=== PATIENT | male | born 1930 | race Hispanic/Latino ===

== ENCOUNTER 2017-05-01 09:21 | Inpatient (IN) | payer MEDICARE ==
[2017-05-01 09:21] VITALS: BMI 21.9
[2017-05-01 10:24] LABS: BASO % 0.3 % (0.0-2.0); EOS # 0.1 K/uL (0.0-0.7); EOS % 1.9 % (0.0-4.0); HEMATOCRIT 24.8 % (35.0-51.0); LYMPH # 0.7 K/uL (1.0-4.3); LYMPH % 17.4 % (20.0-40.0); MEAN CORPUSCULAR HEMOGLOBIN 20.6 pg (27.0-31.0); MEAN CORPUSCULAR HGB CONC 31.7 g/dL (33.0-37.0); MEAN PLATELET VOLUME 7.4 fL (7.2-11.7); MONO # 0.6 K/uL (0.0-0.8); MONO % 14.1 % (0.0-10.0); RED CELL DISTRIBUTION WIDTH 17.4 % (11.5-14.5)
[2017-05-01 10:37] LABS: POTASSIUM 4.4 mmol/L (3.6-5.2)
[2017-05-01 10:40] LABS: ALB/GLOB RATIO 1.5 (1.0-2.1); BILIRUBIN,TOTAL 0.7 mg/dL (0.2-1.3); CALCIUM 8.1 mg/dl (8.6-10.4)
[2017-05-01 10:51] LABS: TROPONIN I 0.012 ng/mL (0.00-0.120)
--- NOTE | 2017-05-01 13:37 | C.PDOC ---
History Of Present Illness 86 year old male presents to the ED c/o intermittent palpitations but has been worse since yesterday. Patient states he feels the palpitations every time he walks associated with lightheadedness. Patient denies any CP, SOB, fever, chills , cough. Time Seen by Provider: 05/01/17 09:58 Chief Complaint (Nursing): Palpitations History Per: Patient History/Exam Limitations: no limitations Onset/Duration Of Symptoms: Intermittent Episodes Current Symptoms Are (Timing): Still Present Recent travel outside of the [place]: No Additional History Per: Patient Past Medical History Reviewed: Historical Data, Nursing Documentation, Vital Signs Vital Signs: Last Vital Signs Temp 97.6 F 05/01/17 15:40 Pulse 66 05/01/17 15:40 Resp 20 05/01/17 15:40 BP 178/77 H 05/01/17 15:40 Pulse Ox 98 05/01/17 15:40 - Medical History PMH: COPD, HTN, Hyperlipidemia Surgical History: Coronary Stent (06/2016) - Hall Procedures ENDOSC POLYPECTOMY OF LG INTEST (12/21/14) MEASURE OF CARDIAC SAMPL & PRESSURE, L HEART, PERC APPROACH (07/11/16) PLAIN RADIOGRAPHY OF LEFT HEART USING OTHER CONTRAST (07/11/16) PLAIN RADIOGRAPHY OF MULT COR ART USING OTH CONTRAST (07/11/16) Family History: States: Unknown Family Hx - Social History Hx Tobacco Use: No Hx Alcohol Use: No Hx Substance Use: No - Immunization History Hx Tetanus Toxoid Vaccination: No Hx Influenza Vaccination: Yes Hx Pneumococcal Vaccination: Yes Review Of Systems Constitutional: Negative for: Fever, Chills Cardiovascular: Positive for: Palpitations. Negative for: Chest Pain Respiratory: Negative for: Cough, Shortness of Breath Gastrointestinal: Negative for: Nausea, Vomiting, Abdominal Pain Neurological: Negative for: Weakness, Numbness Physical Exam - Physical Exam Appears: Non-toxic, No Acute Distress Skin: Warm, Dry, Pale Head: Atraumatic, Normacephalic Eye(s): bilateral: Normal Inspection Oral Mucosa: Moist Neck: Normal ROM, Supple Chest: Symmetrical, No Tenderness Cardiovascular: Rhythm Regular, No Murmur Respiratory: Normal Breath Sounds, No Accessory Muscle Use, No Rales, No Rhonchi , No Wheezing Gastrointestinal/Abdominal: Soft, No Tenderness Rectal: Heme Negative (no stool in the rectum, yanelis negative) Extremity: Normal ROM, No Pedal Edema, No Deformity, No Swelling Neurological/Psych: Oriented x3, Normal Speech, Normal Cognition, Normal Motor, Normal Sensation ED Course And Treatment - Laboratory Results Result Diagrams: 05/01/17 10:16 05/01/17 10:16 ECG Rhythm: Sinus Rhythm ECG Interpretation: Normal Interpretation Of ECG: LVH Rate From EC O2 Sat by Pulse Oximetry: 100 (On RA) Pulse Ox Interpretation: Normal Progress Note: Plan: -Blood work, UA, CXR ordered. CXR results: Chest x-ray single frontal view. History: Palpitations. Comparison: 08/02/2016. Findings : Mild venous congestion. Right hilar prominence. Right paratracheal prominence may represent prominent vasculature. Biapical pleural thickening. Tortuous aorta. Degenerative changes spine and shoulders. Impression: Mild venous congestion. Right hilar prominence. Right paratracheal prominence may represent prominent vasculature. Biapical pleural thickening. Tortuous aorta. Case was d/w Dr.Bhatnagar clark accepted patient to his servive for an admission. Disposition - Disposition Disposition: HOSPITALIZED Disposition Time: 13:37 Condition: FAIR - Clinical Impression Clinical Impression: Symptomatic anemia - PA / PLANT FACILITIES TECHNICIAN / Resident Statement MD/DO has reviewed & agrees with the documentation as recorded. - Scribe Statement The provider has reviewed the documentation as recorded by the Scribe Pedro Driscoll All medical record entries made by the Scribe were at my direction and personally dictated by me. I have reviewed the chart and agree that the record accurately reflects my personal performance of the history, physical exam, medical decision making, and the department course for this patient. I have also personally directed, reviewed, and agree with the discharge instructions and disposition. Decision To Admit - Pt Status Changed To: Hospital Disposition Of: Inpatient - Admit Certification Admit to Inpatient:: After my assessment, the patient will require hospitalization for at least two midnights. This is because of the severity of symptoms shown, intensity of services needed, and/or the medical risk in this patient being treated as an outpatient. - InPatient: Physician Admission Certification: I certify that this patient requires 2 or more midnights of care for the following reason:: patient needs to be worked up for anemia - . Bed Request Type: Regular Admitting Physician: Ryan Muro Patient Diagnosis: Symptomatic anemia
--- NOTE | 2017-05-01 13:57 | RAD ---
Chest x-ray single frontal view History: Palpitations. Comparison: 08/02/2016 Findings: Mild venous congestion. Right hilar prominence. Right paratracheal prominence may represent prominent vasculature. Biapical pleural thickening. Tortuous aorta. Degenerative changes spine and shoulders. Impression: Mild venous congestion. Right hilar prominence. Right paratracheal prominence may represent prominent vasculature. Biapical pleural thickening. Tortuous aorta.
[2017-05-01 16:08] VITALS: RESP 20
--- NOTE | 2017-05-01 20:46 | CP.PCM.HP ---
Past Patient History - Infectious Disease Hx of Infectious Diseases: None - Past Medical History & Family History Past Medical History?: Yes - Past Social History Smoking Status: Former Smoker - CARDIAC Hx Hypertension: Yes - PULMONARY Hx Chronic Obstructive Pulmonary Disease (COPD): Yes - ENDOCRINE/METABOLIC Hx Diabetes Mellitus Type 1: Yes - MUSCULOSKELETAL/RHEUMATOLOGICAL Hx Falls: Yes - PSYCHIATRIC Hx Substance Use: No - SURGICAL HISTORY Hx Coronary Stent: Yes (06/2016) - ANESTHESIA Hx Anesthesia: Yes Hx Anesthesia Reactions: No Hx Malignant Hyperthermia: No Meds Allergies/Adverse Reactions: Allergies Allergy/AdvReac Type Severity Reaction Status Date / Time No Known Allergies Allergy Verified 08/02/16 12:24 Results - Vital Signs Recent Vital Signs: Last Vital Signs Temp 97.8 F 05/01/17 20:41 Pulse 65 05/01/17 20:41 Resp 20 05/01/17 20:41 BP 171/73 H 05/01/17 20:41 Pulse Ox 100 05/01/17 17:15 - Labs Result Diagrams: 05/01/17 10:16 05/01/17 10:16 Labs: Laboratory Results - last 24 hr 05/01/17 05/01/17 05/01/17 10:16 10:16 10:16 WBC 4.0 L RBC 3.82 L Hgb 7.9 L Hct 24.8 L MCV 65.0 L D MCH 20.6 L MCHC 31.7 L RDW 17.4 H Plt Count 205 MPV 7.4 Neut % (Auto) 66.3 Lymph % (Auto) 17.4 L [place] % (Auto) 14.1 H Eos % (Auto) 1.9 Baso % (Auto) 0.3 Neut # 2.6 Lymph # 0.7 L [place] # 0.6 Eos # 0.1 Baso # 0.0 Differential Comment PT 11.8 INR 1.0 APTT 27 Sodium 136 Potassium 4.4 Chloride 100 Carbon Dioxide 26 Anion Gap 14 BUN 20 Creatinine 1.8 H Est GFR ( Amer) 44 Est GFR (Non-Af Amer) 36 Random Glucose 114 H Calcium 8.1 L Total Bilirubin 0.7 AST 61 H ALT 71 Alkaline Phosphatase 101 Total Creatine Kinase 25 L CK-MB (Mass) 0.29 Troponin I 0.0120 NT-Pro-B Natriuret Pep 1010 H Total Protein 6.0 L Albumin 3.5 Globulin 2.4 Albumin/Globulin Ratio 1.5 Stool Occult Blood Blood Type Antibody Screen 05/01/17 05/01/17 12:48 14:01 WBC RBC Hgb Hct MCV MCH MCHC RDW Plt Count MPV Neut % (Auto) Lymph % (Auto) [place] % (Auto) Eos % (Auto) Baso % (Auto) Neut # Lymph # [place] # Eos # Baso # Differential Comment PT INR APTT Sodium Potassium Chloride Carbon Dioxide Anion Gap BUN Creatinine Est GFR ( Amer) Est GFR (Non-Af Amer) Random Glucose Calcium Total Bilirubin AST ALT Alkaline Phosphatase Total Creatine Kinase CK-MB (Mass) Troponin I NT-Pro-B Natriuret Pep Total Protein Albumin Globulin Albumin/Globulin Ratio Stool Occult Blood Negative Blood Type O POSITIVE Antibody Screen Negative
[2017-05-02 08:00] LABS: URINE BILIRUBIN NEGATIVE (NEGATIVE); URINE BLOOD NEGATIVE (NEGATIVE); URINE COLOR Yellow (YELLOW); URINE GLUCOSE (UA) NORMAL (Normal); URINE KETONE NEGATIVE (NEGATIVE); URINE LEUKOCYTE ESTERASE NEG Leu/uL (Negative); URINE PROTEIN NEGATIVE (NEGATIVE); URINE UROBILINOGEN NORMAL mg/dL (0.2-1.0); WBC URINE < 1 /hpf (0-5)
[2017-05-02 08:32] LABS: BASO % 0.3 % (0.0-2.0); EOS # 0.1 K/uL (0.0-0.7); HEMATOCRIT 28.7 % (35.0-51.0); LYMPH # 0.9 K/uL (1.0-4.3); LYMPH % 17.1 % (20.0-40.0); MEAN CELL VOLUME 66.7 fL (80.0-94.0); MEAN CORPUSCULAR HEMOGLOBIN 21.4 pg (27.0-31.0); MEAN PLATELET VOLUME 7.8 fL (7.2-11.7); MONO # 0.7 K/uL (0.0-0.8); MONO % 12.9 % (0.0-10.0); RED CELL DISTRIBUTION WIDTH 18.8 % (11.5-14.5); RETIC% 1.1 % (0.5-1.5); WHITE BLOOD COUNT 5.4 K/uL (4.8-10.8)
[2017-05-02 09:08] LABS: IRON 58 ug/dL (49-181)
[2017-05-02 09:42] LABS: FOLATE 12.8 ng/mL
--- NOTE | 2017-05-02 10:42 | CP.PCM.CON ---
History of Present Illness - History of Present Illness History of Present Illness: This is an 86 year old man admitted with anemia. Patient is known to me from a previous admission 12/21/2014 for rectal bleeding. At that time, colonoscopy was performed (on 12/22/2014) and showed diverticulosis and small colon polyps. The most recent CBC in the chart from 08/02/2016 showed a HGB of 9.6. Patient presented to the ER on 05/01/2017 with a one day history of palpitations and lightheadedness with exercise, such as walking. Blood work showed a HGB of 7.9, MCV 65, iron 58, TIBC 329, ferritin 9.3, and stool occult blood negative. He was admitted for transfusion. Patient denies having nausea, vomiting, heartburn, difficulty swallowing, diarrhea, constipation, melena, and rectal bleeding. He has epigastric discomfort when he overeats. Review of Systems - Review of Systems All systems: reviewed and no additional remarkable complaints except - Constitutional Constitutional: absent: Chills, Fever - Cardiovascular Cardiovascular: Palpitations. absent: Chest Pain - Respiratory Respiratory: absent: Cough, Dyspnea - Gastrointestinal Gastrointestinal: absent: Constipation, Diarrhea, Dysphagia, Heartburn, Hematochezia, Melena, Nausea, Vomiting - Neurological Neurological: absent: Numbness, Weakness Past Patient History - Infectious Disease Hx of Infectious Diseases: None - Past Medical History & Family History Past Medical History?: Yes - Past Social History Smoking Status: Former Smoker - CARDIAC Hx Hypertension: Yes - PULMONARY Hx Chronic Obstructive Pulmonary Disease (COPD): Yes - ENDOCRINE/METABOLIC Hx Diabetes Mellitus Type 1: Yes - MUSCULOSKELETAL/RHEUMATOLOGICAL Hx Falls: Yes - PSYCHIATRIC Hx Substance Use: No - SURGICAL HISTORY Hx Coronary Stent: Yes (06/2016) - ANESTHESIA Hx Anesthesia: Yes Hx Anesthesia Reactions: No Hx Malignant Hyperthermia: No Meds Allergies/Adverse Reactions: Allergies Allergy/AdvReac Type Severity Reaction Status Date / Time No Known Allergies Allergy Verified 08/02/16 12:24 - Medications Medications: Current Medications Amiodarone HCl (Cordarone) 200 mg PO DAILY [facility] Last Admin: 05/02/17 09:54 Dose: 200 mg Carvedilol (Coreg) 3.125 mg PO BID [facility] Last Admin: 05/02/17 09:54 Dose: 3.125 mg Enalapril Maleate (Vasotec) 10 mg PO DAILY [facility] Last Admin: 05/02/17 09:54 Dose: 10 mg Furosemide (Lasix) 20 mg PO DAILY [facility] Last Admin: 05/02/17 09:53 Dose: 20 mg Rosuvastatin Calcium (Crestor) 20 mg PO HS [facility] Physical Exam - Constitutional Appears: No Acute Distress - Head Exam Head Exam: ATRAUMATIC, NORMOCEPHALIC - Eye Exam Eye Exam: EOMI, PERRL - Neck Exam Neck exam: Negative for: Lymphadenopathy, Thyromegaly - Respiratory Exam Respiratory Exam: NORMAL BREATHING PATTERN. absent: Rales, Rhonchi, Wheezes - Cardiovascular Exam Cardiovascular Exam: REGULAR RHYTHM, +S1, +S2. absent: Gallop, Rubs, Systolic Murmur - GI/Abdominal Exam GI & Abdominal Exam: Normal Bowel Sounds, Soft. absent: Mass, Organomegaly, Tenderness - Rectal Exam Rectal Exam: Deferred - Extremities Exam Extremities exam: Negative for: calf tenderness, pedal edema Results - Vital Signs Recent Vital Signs: Last Vital Signs Temp 98.5 F 05/02/17 08:00 Pulse 60 05/02/17 08:00 Resp 20 05/02/17 08:00 BP 165/63 H 05/02/17 09:54 Pulse Ox 98 05/02/17 08:00 - Labs Result Diagrams: 05/02/17 08:09 05/01/17 10:16 Labs: Laboratory Results - last 24 hr 05/01/17 05/01/17 05/01/17 10:16 10:16 12:48 WBC RBC Hgb Hct MCV MCH MCHC RDW Plt Count MPV Neut % (Auto) Lymph % (Auto) [place] % (Auto) Eos % (Auto) Baso % (Auto) Neut # Lymph # [place] # Eos # Baso # Differential Comment Retic Count Sodium 136 Potassium 4.4 Chloride 100 Carbon Dioxide 26 Anion Gap 14 BUN 20 Creatinine 1.8 H Est GFR ( Amer) 44 Est GFR (Non-Af Amer) 36 Random Glucose 114 H Calcium 8.1 L Iron TIBC % Saturation Ferritin Total Bilirubin 0.7 AST 61 H ALT 71 Alkaline Phosphatase 101 Total Creatine Kinase 25 L CK-MB (Mass) 0.29 Troponin I 0.0120 NT-Pro-B Natriuret Pep 1010 H Total Protein 6.0 L Albumin 3.5 Globulin 2.4 Albumin/Globulin Ratio 1.5 Vitamin B12 Folate Urine Color Urine Clarity Urine pH Ur Specific [place] Urine Protein Urine Glucose (UA) Urine Ketones Urine Blood Urine Nitrate Urine Bilirubin Urine Urobilinogen Ur Leukocyte Esterase Urine WBC (Auto) Stool Occult Blood Negative Blood Type Antibody Screen 05/01/17 05/02/17 05/02/17 14:01 07:36 08:09 WBC 5.4 RBC 4.29 L Hgb 9.2 L Hct 28.7 L MCV 66.7 L MCH 21.4 L MCHC 32.0 L RDW 18.8 H Plt Count 230 MPV 7.8 Neut % (Auto) 67.7 Lymph % (Auto) 17.1 L [place] % (Auto) 12.9 H Eos % (Auto) 2.0 Baso % (Auto) 0.3 Neut # 3.6 Lymph # 0.9 L [place] # 0.7 Eos # 0.1 Baso # 0.0 Differential Comment Retic Count 1.1 Sodium Potassium Chloride Carbon Dioxide Anion Gap BUN Creatinine Est GFR ( Amer) Est GFR (Non-Af Amer) Random Glucose Calcium Iron TIBC % Saturation Ferritin Total Bilirubin AST ALT Alkaline Phosphatase Total Creatine Kinase CK-MB (Mass) Troponin I NT-Pro-B Natriuret Pep Total Protein Albumin Globulin Albumin/Globulin Ratio Vitamin B12 Folate Urine Color Yellow Urine Clarity Clear Urine pH 7.0 Ur Specific [place] 1.011 Urine Protein Negative Urine Glucose (UA) Normal Urine Ketones Negative Urine Blood Negative Urine Nitrate Negative Urine Bilirubin Negative Urine Urobilinogen Normal Ur Leukocyte Esterase Neg Urine WBC (Auto) < 1 Stool Occult Blood Blood Type O POSITIVE Antibody Screen Negative 05/02/17 05/02/17 08:09 08:09 WBC RBC Hgb Hct MCV MCH MCHC RDW Plt Count MPV Neut % (Auto) Lymph % (Auto) [place] % (Auto) Eos % (Auto) Baso % (Auto) Neut # Lymph # [place] # Eos # Baso # Differential Comment Retic Count Sodium Potassium Chloride Carbon Dioxide Anion Gap BUN Creatinine Est GFR ( Amer) Est GFR (Non-Af Amer) Random Glucose Calcium Iron 58 TIBC 329 % Saturation 18 L Ferritin 9.3 Total Bilirubin AST ALT Alkaline Phosphatase Total Creatine Kinase CK-MB (Mass) Troponin I NT-Pro-B Natriuret Pep Total Protein Albumin Globulin Albumin/Globulin Ratio Vitamin B12 809 Folate 12.8 Urine Color Urine Clarity Urine pH Ur Specific [place] Urine Protein Urine Glucose (UA) Urine Ketones Urine Blood Urine Nitrate Urine Bilirubin Urine Urobilinogen Ur Leukocyte Esterase Urine WBC (Auto) Stool Occult Blood Blood Type Antibody Screen Assessment & Plan (1) Iron deficiency anemia Assessment and Plan: Patient has iron deficiency anemia without dayana rectal bleeding. Recommend additional stool specimens for occult blood. The last colonoscopy was performed two years ago, but EGD was not done. I would also recommend EGD at this point, which can be done as an outpatient. Status: Acute
--- NOTE | 2017-05-02 22:01 | CP.PCM.PN ---
Subjective - Date & Time of Evaluation Date of Evaluation: 05/02/17 Time of Evaluation: 14:40 Objective - Vital Signs/Intake and Output Vital Signs (last 24 hours): Temp Pulse Resp BP Pulse Ox 97.4 F L 63 20 143/55 L 62 L 05/02/17 15:00 05/02/17 15:00 05/02/17 15:00 05/02/17 21:23 05/02/17 21:23 Intake and Output: 05/02/17 05/03/17 18:59 06:59 Intake Total 660 Output Total 550 Balance 110 - Medications Medications: Current Medications Amiodarone HCl (Cordarone) 200 mg PO DAILY [facility] Last Admin: 05/02/17 09:54 Dose: 200 mg Carvedilol (Coreg) 3.125 mg PO BID [facility] Last Admin: 05/02/17 17:35 Dose: 3.125 mg Enalapril Maleate (Vasotec) 10 mg PO DAILY [facility] Last Admin: 05/02/17 09:54 Dose: 10 mg Furosemide (Lasix) 20 mg PO DAILY [facility] Last Admin: 05/02/17 09:53 Dose: 20 mg Rosuvastatin Calcium (Crestor) 10 mg PO HS [facility] Last Admin: 05/02/17 21:21 Dose: 10 mg - Labs Labs: 05/02/17 08:09 05/01/17 10:16 PT 11.8 SECONDS (9.7-12.2) 05/01/17 10:16 INR 1.0 05/01/17 10:16 APTT 27 SECONDS (21-34) 05/01/17 10:16
[2017-05-03 12:17] LABS: BASO % 0.1 % (0.0-2.0); EOS % 0.6 % (0.0-4.0); HEMATOCRIT 28.3 % (35.0-51.0); LYMPH % 14.6 % (20.0-40.0); MEAN CELL VOLUME 67.1 fL (80.0-94.0); MEAN CORPUSCULAR HEMOGLOBIN 21.1 pg (27.0-31.0); MEAN CORPUSCULAR HGB CONC 31.4 g/dL (33.0-37.0); MONO # 0.7 K/uL (0.0-0.8); MONO % 10.2 % (0.0-10.0); RED CELL DISTRIBUTION WIDTH 18.9 % (11.5-14.5); WHITE BLOOD COUNT 6.9 K/uL (4.8-10.8)
[2017-05-03 12:29] LABS: CALCIUM 8.4 mg/dl (8.6-10.4); POTASSIUM 4.8 mmol/L (3.6-5.2)
[2017-05-03] MEDS ORDERED: guaiFENesin DM 200 mg-20 mg/10 ml UD PO ONE (13:06)
--- NOTE | 2017-05-03 13:12 | CARD ---
APPROVED REPORT EKG Measurement Heart [id number] ND [id number] [id number] <Conclusion> Normal sinus rhythm Minimal voltage criteria for LVH, may be normal variant Borderline ECG
--- NOTE | 2017-05-03 13:25 | CP.PCM.PN ---
Subjective - Date & Time of Evaluation Date of Evaluation: 05/03/17 Time of Evaluation: 11:00 - Subjective Subjective: Alert, awake, denies abdominal pain or bleeding,NAD. Objective - Vital Signs/Intake and Output Vital Signs (last 24 hours): Temp Pulse Resp BP Pulse Ox 97.7 F 60 20 165/62 H 97 05/03/17 08:00 05/03/17 08:00 05/03/17 08:00 05/03/17 09:42 05/03/17 08:00 Intake and Output: 05/03/17 05/03/17 06:59 18:59 Intake Total 360 Balance 360 - Medications Medications: Current Medications Amiodarone HCl (Cordarone) 200 mg PO DAILY [facility] Last Admin: 05/03/17 09:42 Dose: 200 mg Carvedilol (Coreg) 3.125 mg PO BID [facility] Last Admin: 05/03/17 09:42 Dose: 3.125 mg Enalapril Maleate (Vasotec) 10 mg PO DAILY [facility] Last Admin: 05/03/17 09:42 Dose: 10 mg Furosemide (Lasix) 20 mg PO DAILY [facility] Last Admin: 05/03/17 09:42 Dose: 20 mg Rosuvastatin Calcium (Crestor) 10 mg PO HS [facility] Last Admin: 05/02/17 21:21 Dose: 10 mg - Labs Labs: 05/03/17 12:00 05/03/17 12:00 PT 11.8 SECONDS (9.7-12.2) 05/01/17 10:16 INR 1.0 05/01/17 10:16 APTT 27 SECONDS (21-34) 05/01/17 10:16 Assessment and Plan - Assessment and Plan (Free Text) Assessment: Patient is seen and examined. Says he is feeling better. Alert, oriented, denies sob or chest pains. No dayana bleeding. D/W DR Muro, plan to discharge home with home meds. Advised to f/u with PMD in 1 week, also to follow up GI for colonoscopy as outpatient.
[2017-05-03 15:51] VITALS: BP 120/64; PULSE 61; TEMP 98.1; O2SAT 96
--- NOTE | 2017-05-04 01:00 | CP.PCM.DIS ---
Provider - Provider Date of Admission: 05/01/17 13:34 Attending physician: Ryan Muro MD [facility] Course - Lab Results Lab Results: Most Recent Lab Values WBC 6.9 K/uL (4.8-10.8) 05/03/17 12:00 RBC 4.22 Mil/uL (4.40-5.90) L 05/03/17 12:00 Hgb 8.9 g/dL (12.0-18.0) L 05/03/17 12:00 Hct 28.3 % (35.0-51.0) L 05/03/17 12:00 MCV 67.1 fL (80.0-94.0) L 05/03/17 12:00 MCH 21.1 pg (27.0-31.0) L 05/03/17 12:00 MCHC 31.4 g/dL (33.0-37.0) L 05/03/17 12:00 RDW 18.9 % (11.5-14.5) H 05/03/17 12:00 Plt Count 227 K/uL (130-400) 05/03/17 12:00 MPV 8.0 fL (7.2-11.7) 05/03/17 12:00 Neut % (Auto) 74.5 % (50.0-75.0) 05/03/17 12:00 Lymph % (Auto) 14.6 % (20.0-40.0) L 05/03/17 12:00 [place] % (Auto) 10.2 % (0.0-10.0) H 05/03/17 12:00 Eos % (Auto) 0.6 % (0.0-4.0) 05/03/17 12:00 Baso % (Auto) 0.1 % (0.0-2.0) 05/03/17 12:00 Neut # 5.2 K/uL (1.8-7.0) 05/03/17 12:00 Lymph # 1.0 K/uL (1.0-4.3) 05/03/17 12:00 [place] # 0.7 K/uL (0.0-0.8) 05/03/17 12:00 Eos # 0.0 K/uL (0.0-0.7) 05/03/17 12:00 Baso # 0.0 K/uL (0.0-0.2) 05/03/17 12:00 Differential Comment 05/01/17 10:16 Retic Count 1.1 % (0.5-1.5) 05/02/17 08:09 PT 11.8 SECONDS (9.7-12.2) 05/01/17 10:16 INR 1.0 05/01/17 10:16 APTT 27 SECONDS (21-34) 05/01/17 10:16 Sodium 137 mmol/L (132-148) 05/03/17 12:00 Potassium 4.8 mmol/L (3.6-5.2) 05/03/17 12:00 Chloride 103 mmol/L (98-107) 05/03/17 12:00 Carbon Dioxide 27 mmol/L (22-30) 05/03/17 12:00 Anion Gap 11 (10-20) 05/03/17 12:00 BUN 25 mg/dL (9-20) H 05/03/17 12:00 Creatinine 1.5 mg/dL (0.8-1.5) 05/03/17 12:00 Est GFR ( Amer) 54 05/03/17 12:00 Est GFR (Non-Af Amer) 44 05/03/17 12:00 Random Glucose 82 mg/dL (75-110) 05/03/17 12:00 Calcium 8.4 mg/dl (8.6-10.4) L 05/03/17 12:00 Iron 58 ug/dL (49-181) 05/02/17 08:09 TIBC 329 ug/dL (250-450) 05/02/17 08:09 % Saturation 18 (20-55) L 05/02/17 08:09 Ferritin 9.3 ng/mL 05/02/17 08:09 Total Bilirubin 0.7 mg/dL (0.2-1.3) 05/01/17 10:16 AST 61 U/L (17-59) H 05/01/17 10:16 ALT 71 U/L (21-72) 05/01/17 10:16 Alkaline Phosphatase 101 U/L (38-126) 05/01/17 10:16 Total Creatine Kinase 25 U/L (55-170) L 05/01/17 10:16 CK-MB (Mass) 0.29 ng/mL (0.0-3.38) 05/01/17 10:16 Troponin I 0.0120 ng/mL (0.00-0.120) 05/01/17 10:16 NT-Pro-B Natriuret Pep 1010 pg/mL (0-900) H 05/01/17 10:16 Total Protein 6.0 g/dL (6.3-8.3) L 05/01/17 10:16 Albumin 3.5 g/dL (3.5-5.0) 05/01/17 10:16 Globulin 2.4 gm/dL (2.2-3.9) 05/01/17 10:16 Albumin/Globulin Ratio 1.5 (1.0-2.1) 05/01/17 10:16 Vitamin B12 809 pg/mL (239-931) 05/02/17 08:09 Folate 12.8 ng/mL 05/02/17 08:09 Urine Color Yellow (YELLOW) 05/02/17 07:36 Urine Clarity Clear (Clear) 05/02/17 07:36 Urine pH 7.0 (5.0-8.0) 05/02/17 07:36 Ur Specific [place] 1.011 (1.003-1.030) 05/02/17 07:36 Urine Protein Negative mg/dL (NEGATIVE) 05/02/17 07:36 Urine Glucose (UA) Normal mg/dL (Normal) 05/02/17 07:36 Urine Ketones Negative mg/dL (NEGATIVE) 05/02/17 07:36 Urine Blood Negative (NEGATIVE) 05/02/17 07:36 Urine Nitrate Negative (NEGATIVE) 05/02/17 07:36 Urine Bilirubin Negative (NEGATIVE) 05/02/17 07:36 Urine Urobilinogen Normal mg/dL (0.2-1.0) 05/02/17 07:36 Ur Leukocyte Esterase Neg [place]/uL (Negative) 05/02/17 07:36 Urine WBC (Auto) < 1 /hpf (0-5) 05/02/17 07:36 Stool Occult Blood Negative (NEGATIVE) 05/01/17 12:48 Blood Type O POSITIVE 05/01/17 14:01 Antibody Screen Negative 05/01/17 14:01 Discharge Exam - Head Exam Head Exam: ATRAUMATIC, NORMOCEPHALIC Discharge Plan - Follow Up Plan Condition: FAIR Disposition: HOME/ ROUTINE Instructions: Anemia (DC) Additional Instructions: Follow up with PMD in 1 week may use robitussin 10ml prn for cough q8hX3 DAYS follow up with the MD if cough getting worse follow up with DR Garcia for a colonoscopy as outpatient. Referrals: Ryan Muro MD [Staff Provider] - Cameron Amezquita DO [Staff Provider] -
== END 2017-05-03 16:46 | disposition home or self-care (01) | DRG 812 ==
LOC: C.ER 09:21 → C.9E 13:34 → C.3T 14:54
PROVIDERS: ADMIT Internal Medicine Critical Care Medicine; ATTEND Internal Medicine Critical Care Medicine
PROC: 30233N1 Transfusion of Nonautologous Red Blood Cells into Peripheral Vein, Percutaneous Approach (ICD-10-PCS; principal; 2017-05-01)
DX: D50.9 Iron deficiency anemia, unspecified (principal); J44.9 Chronic obstructive pulmonary disease, unspecified; E11.9 Type 2 diabetes mellitus without complications; I10 Essential (primary) hypertension; E78.5 Hyperlipidemia, unspecified; K57.90 Diverticulosis of intestine, part unspecified, without perforation or abscess without bleeding; Z86.010 Personal history of colon polyps; Z79.4 Long term (current) use of insulin; Z87.891 Personal history of nicotine dependence; Z95.5 Presence of coronary angioplasty implant and graft

== ENCOUNTER 2017-07-20 11:17 | Emergency (ER) | payer OTHER, MEDICARE ==
[2017-07-20 11:18] VITALS: BMI 21.9
[2017-07-20 11:30] VITALS: RESP 16; TEMP 97.8
[2017-07-20] MEDS ORDERED: Bacitracin 500 Units/gm Oint Foilpak UD TOP ONE (12:11)
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
[2017-07-20] MEDS ORDERED: Tetanus/Diphtheria Toxoids 0.5 ml Syringe IM ONE (12:31)
[2017-07-20] MEDS ORDERED: Bacitracin 500 Units/gm Oint Foilpak UD ONE (12:32)
[2017-07-20 13:40] VITALS: PULSE 78
--- NOTE | 2017-07-20 14:06 | RAD ---
PROCEDURE: Left Ankle Radiographs. HISTORY: r/o fx COMPARISON: None FINDINGS: BONES: A nondisplaced medial malleoli are horizontal fracture present. No fibular fracture. No posterior malleoli are fracture. JOINTS: Mild anterior tibiotalar osteoarthritis. Ankle mortise maintained. Talar dome intact SOFT TISSUES: Anterior and medial soft tissue swelling. Joint effusion inferred OTHER FINDINGS: None. IMPRESSION: Nondisplaced medial malleoli are fracture noted per oblique view. Associated soft tissue swelling and joint effusion Ankle mortise intact
--- NOTE | 2017-07-20 14:16 | RAD ---
PROCEDURE: Radiographs of the left tibia and fibula. HISTORY: r/o fx COMPARISON: None available. TECHNIQUE: Frontal and lateral views obtained. FINDINGS: BONES: No fracture or destructive lesion seen on this exam. However on patient's same-day left ankle exam, a nondisplaced medial malleolar fracture is noted. . A tibial epiphyseal central chondroid lesion is present. An enchondroma, bone infarct and even low-grade chondrosarcoma is are considerations. Direct comparison with earlier exams including the left knee image is strongly recommended. JOINT SPACES: The medial femoral tibial and tibiotalar joint spaces appear slightly decreased. OTHER FINDINGS: Here calcifications noted. IMPRESSION: No fracture or destructive lesion seen on this exam. However on patient's same-day left ankle exam, a nondisplaced medial malleolar fracture is noted. A tibial epiphyseal central chondroid lesion is present. An enchondroma, bone infarct and even low-grade chondrosarcoma is are considerations. Direct comparison with earlier exams including the left knee image is strongly recommended.
--- NOTE | 2017-07-20 14:36 | RAD ---
PROCEDURE: Left Foot Radiographs. HISTORY: r/o fx COMPARISON: None. A same-day left ankle ray study is noted FINDINGS: BONES: A medial malleoli are fracture is partially visualize with overlying soft tissue swelling. Reference to this on the same-day left ankle x-ray study noted JOINTS: Mild arthrosis -1st meta tarsal phalangeal joint most notable. SOFT TISSUES: Medial perimalleolar soft tissue swelling OTHER FINDINGS: Hammertoe like orientations. Prominent plantar arch IMPRESSION: Partially visualized medial malleoli are fracture as described above No mid or forefoot fractures Hammertoe orientations First metatarsal-phalangeal joint mild arthrosis
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
[2017-07-20 18:03] VITALS: BP 188/97
[2017-07-20 18:34] VITALS: O2SAT 98
== END 2017-07-20 18:02 | disposition home or self-care (01) ==
LOC: C.ER 11:17
DX: S82.52XA Displaced fracture of medial malleolus of left tibia, initial encounter for closed fracture (principal); S90.812A Abrasion, left foot, initial encounter; V09.9XXA Pedestrian injured in unspecified transport accident, initial encounter

== ENCOUNTER 2017-12-25 12:16 | Emergency (ER) | payer MEDICARE ==
[2017-12-25 12:16] VITALS: BMI 21.9
[2017-12-25 12:34] VITALS: RESP 18
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
[2017-12-25 15:12] VITALS: BP 145/84; PULSE 65; TEMP 98.8
--- NOTE | 2017-12-25 16:14 | VASCLAB ---
PROCEDURE: Left Lower Extremity Venous Duplex Exam. HISTORY: pain PRIORS: None. TECHNIQUE: Left common femoral, femoral, popliteal and posterior tibial, peroneal and great saphenous veins were evaluated. Flow was assessed with color Doppler, compressibility, assessment of phasic flow and augmentation response. Report prepared by EYAD Odonnell, RVT FINDINGS: LEFT: 1. Common Femoral Vein: 1.1. Compressibility - Fully compressible: Thrombus - None : Flow - Phasic: Augmentation -Normal: Reflux - None. 2. Femoral Vein: 2.1. Compressibility - Fully compressible: Thrombus - None: Flow - Phasic: Augmentation -Normal: Reflux - None. 3. Popliteal Vein: 3.1. Compressibility - Fully compressible: Thrombus - None: Flow - Phasic: Augmentation -Normal: Reflux - None. 4. Posterior Tibial Vein: 4.1. Compressibility - Fully compressible: Thrombus - None: Flow - Phasic: Augmentation -Normal: Reflux - None. 5. Peroneal Vein: 5.1. Compressibility - Fully compressible: Thrombus - None: Flow - Phasic: Augmentation -Normal: Reflux - None. 6. Great Saphenous Vein: 6.1. Compressibility - Fully compressible: Thrombus - None: Flow - Phasic: Augmentation - Normal: Reflux - None. OTHER FINDINGS: IMPRESSION: No evidence of deep or superficial vein thrombosis of the left lower extremity with excellent venous flow. Normal valve function noted of the left side. Normal venous flow noted in the right common femoral vein.
[2017-12-25 16:46] VITALS: O2SAT 99
== END 2017-12-25 15:11 | disposition home or self-care (01) ==
LOC: C.ER 12:16
DX: M79.672 Pain in left foot (principal); I10 Essential (primary) hypertension; E78.5 Hyperlipidemia, unspecified; Z87.891 Personal history of nicotine dependence